=== PATIENT | female | born 1980 | race Caucasian/White ===

== ENCOUNTER 2017-03-15 08:40 | Day surgery (SDC) | payer OTHER ==
[2017-03-15] VITALS (8 sets, daily range): BP systolic 144–182; BP diastolic 81–95
[~2017-03-15] VITALS: Ht 162.6 cm; Wt 123.4 kg
[~2017-03-15 08:40] MED LIST: mirena IUD
[2017-03-15] MEDS ORDERED: fentaNYL 250 MCG/5 ML INJECTION (J3010) As Ordered ONE (08:56)
[2017-03-15] MEDS ORDERED: LIDOCAINE 2% INJ 100 MG/5 ML SDV (FOR ANES.) As Ordered ONE (08:56)
[2017-03-15] MEDS ORDERED: MIDAZOLAM INJ 2 MG/2 ML VIAL (J2250) As Ordered ONE (08:56)
[2017-03-15] MEDS ORDERED: ROCURONIUM BROMIDE 50 MG/5 ML VIAL/SYRINGE As Ordered ONE ×2 (08:56→10:30)
[2017-03-15] MEDS ORDERED: PROPOFOL 200 MG/20 ML VIAL As Ordered ONE (08:56)
[2017-03-15] MEDS ORDERED: LR 1,000 ML IV ONE (09:00)
[2017-03-15 09:07] LABS: MEAN CORPUSCULAR HEMOGLOBIN 29.1 pg (27.0-33.0); RED CELL DISTRIBUTION WIDTH 12.9 % (11.5-14.5)
[2017-03-15] MEDS ORDERED: BUPIVACAINE HCL 0.25% 30 ML VIAL As Ordered ONE (09:57)
[2017-03-15] MEDS ORDERED: METHYLENE BLUE 0.5% (5MG/ML) 10 ML AMP (PROVAYBLUE)(Q9968 PER 1MG) As Ordered ONE (09:57)
[2017-03-15] MEDS ORDERED: ePHEDrine SULFATE 25 MG/5 ML(5MG/ML) SYRINGE As Ordered ONE (09:58)
[2017-03-15] MEDS ORDERED: dexameTHASONE 4 MG/ML 1ML VIAL (J1100) As Ordered ONE (09:59)
[2017-03-15] MEDS ORDERED: GLYCOPYRROLATE INJ 0.2 MG/ML 2 ML VIAL As Ordered ONE (10:14)
[2017-03-15] MEDS ORDERED: NEOSTIGMINE 1MG/ML 5 ML SYRINGE (J2710) As Ordered ONE (10:14)
[2017-03-15] MEDS ORDERED: ONDANSETRON 4MG/2ML VIAL (J2405) As Ordered ONE (10:14)
[2017-03-15] MEDS ORDERED: HYDROmorphone HCL 2 MG/ML 1ML VIAL (J1170) As Ordered ONE (10:14)
[2017-03-15] MEDS ORDERED: KETOROLAC 60 MG/2 ML VIAL (J1885) As Ordered ONE (10:14)
--- NOTE | 2017-03-15 12:42 | RO ---
DATE OF PROCEDURE: 03/15/2017 PREPROCEDURE DIAGNOSES: 1. Abnormal uterine bleeding. 2. Fibroid uterus. POSTPROCEDURE DIAGNOSES: 1. Abnormal uterine bleeding. 2. Fibroid uterus. PROCEDURE: 1. Robotic assisted laparoscopic hysterectomy. 2. Bilateral salpingectomy. 3. Cystoscopy. SURGEON: Dr. Marcia Yeboah. PLANT SUPERVISOR: MIREILLE Argueta ANESTHESIA: General endotracheal anesthesia. INTRAVENOUS FLUIDS: 1400 mL lactated Ringers solution. SPECIMEN: Uterus, cervix, bilateral fallopian tubes. PREOPERATIVE ANTIBIOTICS: 2 grams Ancef. ESTIMATED BLOOD LOSS: 50 mL. URINE OUTPUT: 400 mL. OPERATIVE FINDINGS: The patient had an approximately 3 cm fundal fibroid. Normal appearing bilateral adnexa. Cystoscopic findings: Good urethra reflux bilaterally. No evidence of trauma to the bladder or foreign body. DESCRIPTION OF PROCEDURE: After informed consent was obtained and written consent was reviewed, the patient was brought to the operating room where general endotracheal anesthesia was obtained. She was then placed in the lithotomy position and was prepped and draped in a normal sterile fashion. A time out in the operating room was performed identifying the patient, procedure to be performed, as well as drug allergies. A speculum was then placed in the vagina revealing the cervix. The anterior and posterior aspect of the cervix was stitched with 0 Vicryl. The uterus was then sounded to 10 cm. A [employer] uterine manipulator was then advanced to the cervical os for means to manipulate the uterus. The intrauterine balloon was then insufflated with 10 mL of air. Cervical cap was then placed down into the vagina as well as the vaginal cap. Instruments were removed from the patient's vagina. A Limon catheter was the placed and set to gravity. Gloves were changed and attention was turned to the patient's abdomen where a Veress needle was placed through the umbilicus. A pneumoperitoneum was then obtained with CO2 gas. Supraumbilical area was infused with 0.25% Marcaine and an incision was made in this area. A 12 mm trocar sleeve was advanced through this incision. Laparoscope was then replaced revealing intra-abdominal placement of two lateral ports, left and right of the umbilicus placed. Each of these areas were infused with 0.25% Marcaine and 8 mm trocars and sleeves were advanced through each one of these incisions under direct visualization. A fourth trocar was placed on the left side of the patient's abdomen. This area was infused with 0.25% Marcaine and the incision was made in this area. An 8 mm trocar and sleeve was advanced through this incision under direct visualization. Next, the da Hany was then advanced to the patient's table and was docked. Utilizing the camera arm and two operative arms. Using bipolar cautery, bilateral salpingectomy was then performed. Mesosalpinx was then cauterized and ligated with good hemostasis noted. The fallopian tubes were then transected at the uterus and good hemostasis was noted bilaterally. Both these specimens were then brought out through the port site. Next, the utero-ovarian ligaments were then cauterized and ligated with good hemostasis noted bilaterally. The round ligaments on both sides were then cauterized and ligated with good hemostasis. The broad ligaments were then dissected along the bladder creating a bladder flap. The remainder of the broad ligaments and cardinal ligaments were then cauterized and ligated with good hemostasis noted. The uterine arteries were skeletonized bilaterally and were cauterized and ligated with good hemostasis noted. The anterior and posterior colpotomies were made and the uterus removed vaginally. Surgical sites were inspected and noted to be hemostatic. The vaginal cuff was then closed using a #2-0 V-Loc system in an running fashion. Surgical sites were then inspected and noted to be hemostatic. The abdomen was then irrigated and suctioned. Mariia was applied over the surgical field. Next, a cystoscopy was performed. The Limon catheter was removed and the cystoscope was advanced transurethrally. The cystoscopy was performed revealing normal bilateral mucosa and bilateral jets from the ureters. The bladder was then drained. Attention was turned to the patient's abdomen where all four skin incisions were closed with #4-0 Monocryl and dressed with Dermabond. The patient was then taken out of lithotomy position, and was awakened from general anesthesia and taken to recovery in stable condition. Counts were correct. Luna Sifuentes, my marketing support assistant, played an essential role in this operation. She assisted with identification of vital structures, manipulation of tissue, port placement as well as skin closure. KAREL
[2017-03-15] MEDS ORDERED: PERCOCET 5MG/325MG TAB PO PRN ×2 (13:30)
[2017-03-15] MEDS ORDERED: PROMETHAZINE INJ 25 MG/ML VIAL (J2550) IV PRN (13:45)
[2017-03-15] MEDS ORDERED: MORPHINE 4 MG/ML 1ML SYRINGE IV PRN (13:45)
[2017-03-15] MEDS ORDERED: zolPIDEM TARTRATE 5 MG TAB PO PRN (13:45)
[2017-03-15] MEDS ORDERED: LR 1,000 ML IV SCH (13:45)
[2017-03-15] MEDS: KETOROLAC 30 MG/ML VIAL (J1885) IV SCH ×2 (16:18→22:17)
[2017-03-16] VITALS: BP 138/70
[2017-03-16 04:00] VITALS: BP 140/69
[2017-03-16] MEDS: KETOROLAC 30 MG/ML VIAL (J1885) IV SCH (04:54)
[2017-03-16 07:11] LABS: MEAN CORPUSCULAR HEMOGLOBIN 28.5 pg (27.0-33.0); RED CELL DISTRIBUTION WIDTH 12.6 % (11.5-14.5); WHITE BLOOD COUNT 13.1 K/mm3 (4.0-10.0)
[2017-03-16 08:00] VITALS: BP 135/71
[2017-03-16] MEDS ORDERED: OXYC1TAB23 PO (10:16)
== END 2017-03-16 10:40 | disposition home or self-care (01) ==
LOC: M SDC 08:40 → M PED 12:16 → M SDC 03-16 10:40
PROVIDERS: ATTEND Obstetrics & Gynecology
DX: N93.8 Other specified abnormal uterine and vaginal bleeding (principal); D25.2 Subserosal leiomyoma of uterus
CPT/HCPCS: 36415; 58571; 85027; 86850; 86900; 86901; 88305; 96374; 96376; A6024; J0690; J1100; J1170; J1885; J2250; J2405; J2710; J3010; Q9968

== ENCOUNTER → 2017-05-03 | Outpatient (CLI) | payer OTHER ==
[~2017-05-03] MED LIST changes: +OXYC1TAB23 PO
[2017-05-03 19:14] LABS: FREE T4 0.89 NG/DL (0.76-1.46)
== END ==
LOC: M WUC 15:28
PROVIDERS: ATTEND Internal Medicine Endocrinology, Diabetes & Metabolism
DX: E04.9 Nontoxic goiter, unspecified (principal)

== ENCOUNTER → 2018-05-17 | Outpatient (CLI) | payer OTHER ==
[2018-05-17 18:13] LABS: FREE T4 0.89 NG/DL (0.76-1.46)
== END ==
LOC: M WUC 14:43
DX: E04.9 Nontoxic goiter, unspecified (principal)
CPT/HCPCS: 84443

== ENCOUNTER → 2018-06-09 | Outpatient (REF) | payer OTHER ==
[2018-06-09 13:01] LABS: BASO % 0.4 % (0.0-1.0); EOS # 0.3 10^3/uL (0.0-0.50); EOS % 3.8 % (0.0-3.0); HEMATOCRIT 39.3 % (36.0-47.0); HEMOGLOBIN 12.7 g/dl (12.0-15.5); IMMATURE GRANULOCYTE % 0.3 % (0-3.0); LYMPH # 1.8 10^3/uL (1.5-4.5); LYMPH % 24.6 % (24.0-44.0); MEAN CORPUSCULAR HGB CONC 32.3 g/dl (32.0-36.5); MEAN CORPUSCULAR VOLUME 86.6 fl (80.0-96.0); MONO # 0.6 10^3/uL (0.0-0.8); NEUTROPHILS # 4.5 10^3/uL (1.8-7.7); NEUTROPHILS % 62.9 % (36.0-66.0); PLATELET COUNT, AUTOMATED 289 10^3/uL (150-450); RED BLOOD COUNT 4.54 10^6/uL (4.00-5.40); RED CELL DISTRIBUTION WIDTH 12.7 % (11.5-14.5); WHITE BLOOD COUNT 7.1 10^3/uL (4.0-10.0)
[2018-06-09 13:20] LABS: ALBUMIN 3.4 GM/DL (3.2-5.2); ALBUMIN/GLOBULIN RATIO 1.13 (1.00-1.93); ALKALINE PHOSPHATASE 81 U/L (45-117); ALT/SGPT 20 U/L (12-78); ANION GAP 7 MEQ/L (8-16); AST/SGOT 11 U/L (7-37); BILIRUBIN,TOTAL 0.4 MG/DL (0.2-1.0); BLOOD UREA NITROGEN 14 MG/DL (7-18); CALCIUM LEVEL 8.9 MG/DL (8.5-10.1); CARBON DIOXIDE LEVEL 28 MEQ/L (21-32); CHLORIDE LEVEL 105 MEQ/L (98-107); CHOLESTEROL LEVEL 195 MG/DL (<200); CREATININE FOR GFR 0.58 MG/DL (0.55-1.30); GLOMERULAR FILTRATION RATE > 60.0 (>60); GLUCOSE, FASTING 92 MG/DL (70-100); HDL CHOLESTEROL 52 MG/DL (>40); LDL CHOLESTEROL 122 MG/DL (<100); NON-HDL-C 143 MG/DL; POTASSIUM SERUM 4.8 MEQ/L (3.5-5.1); SODIUM LEVEL 140 MEQ/L (136-145); TOTAL PROTEIN 6.4 GM/DL (6.4-8.2); TRIGLYCERIDES LEVEL 106 MG/DL (<150)
== END ==
LOC: M SFHCADAM 08:12
DX: Z00.00 Encounter for general adult medical examination without abnormal findings (principal)

== ENCOUNTER → 2018-11-25 | Outpatient (REF) | payer OTHER | LOC: M LABDRAW1 10:35 | PROVIDERS: ATTEND Internal Medicine Endocrinology, Diabetes & Metabolism | DX: E07.9 Disorder of thyroid, unspecified (principal) ==

== ENCOUNTER → 2019-04-10 | Outpatient (CLI) | payer OTHER ==
--- NOTE | 2019-04-10 11:03 | REP ---
Hip: Two views. History: Right-sided sciatica. Comparison study: July 09, 2013. Findings: AP and frog-leg views of the right hip demonstrate smooth rounded femoral head and intact hip joint space. Periarticular soft tissues are unremarkable. No erosive changes seen. Impression: Negative radiographs of the right hip. Electronically Signed by Bi Cotter MD 04/10/2019 10:55 A
--- NOTE | 2019-04-10 11:20 | REP ---
LUMBAR SPINE SERIES: Five views. HISTORY: Low back pain with right-sided sciatica. No recent injury. COMPARISON STUDY: July 09, 2013. FINDINGS: Lumbar vertebral body heights are preserved. Alignment is normal. No fracture or collapse is seen. There is diffuse mild discogenic spurring throughout the lumbar spine and visualized lower thoracic levels. This is radiographically unchanged from the 2013 prior study. Disc space narrowing is most pronounced at L3-4. There is no evidence of spondylolysis or spondylolisthesis. Pedicles and posterior elements are intact. Psoas margins are symmetric. Sacrum and SI joints are unremarkable. IMPRESSION: Diffuse mild degenerative disc disease changes. No acute bony abnormality. Electronically Signed by Bi Cotter MD 04/10/2019 11:31 A
== END ==
LOC: M ADAMS 08:46
PROVIDERS: ATTEND Physician Assistant Medical
DX: M51.36 Other intervertebral disc degeneration, lumbar region (principal); M25.551 Pain in right hip

== ENCOUNTER → 2019-06-15 | Outpatient (REF) | payer OTHER ==
[2019-06-15 20:17] LABS: FREE T4 0.93 NG/DL (0.76-1.46); THYROID STIMULATING HORMONE 2.79 uIU/ML (0.358-3.740)
== END ==
LOC: M LAB REF 19:13 → M LABDRWAD 19:13
PROVIDERS: ATTEND Nurse Practitioner Family
DX: E04.9 Nontoxic goiter, unspecified (principal)

== ENCOUNTER → 2022-01-09 | Outpatient (REF) | payer OTHER ==
[2022-01-09 12:52] LABS: BASO # 0.1 10^3/uL (0.0-0.2); BASO % 0.7 % (0.0-1.0); EOS # 0.4 10^3/uL (0.0-0.5); HEMATOCRIT 40.3 % (36.0-47.0); HEMOGLOBIN 12.6 g/dl (12.0-15.5); LYMPH # 1.3 10^3/uL (1.5-5.0); LYMPH % 17.5 % (24.0-44.0); MEAN CORPUSCULAR HEMOGLOBIN 27.6 pg (27.0-33.0); MEAN CORPUSCULAR HGB CONC 31.3 g/dl (32.0-36.5); MEAN CORPUSCULAR VOLUME 88.2 fl (80.0-96.0); MONO # 0.6 10^3/uL (0.0-0.8); MONO % 8.8 % (2.0-8.0); NEUTROPHILS # 4.9 10^3/uL (1.5-8.5); NEUTROPHILS % 67.4 % (36.0-66.0); PLATELET COUNT, AUTOMATED 274 10^3/uL (150-450); RED BLOOD COUNT 4.57 10^6/uL (4.00-5.40); WHITE BLOOD COUNT 7.2 10^3/uL (4.0-10.0)
[2022-01-09 13:06] LABS: HEMOGLOBIN A1c 5.5 %
[2022-01-09 13:30] LABS: ALBUMIN 3.1 GM/DL (3.2-5.2); ALT/SGPT 24 U/L (12-78); BILIRUBIN,TOTAL 0.2 MG/DL (0.2-1.0); BLOOD UREA NITROGEN 17 MG/DL (7-18); CALCIUM LEVEL 8.4 MG/DL (8.5-10.1); CARBON DIOXIDE LEVEL 29 MEQ/L (21-32); CHLORIDE LEVEL 107 MEQ/L (98-107); CHOLESTEROL LEVEL 167 MG/DL (<200); CHOLESTEROL RISK RATIO 3.211 (<5); CREATININE FOR GFR 0.63 MG/DL (0.55-1.30); FREE T4 0.88 NG/DL (0.76-1.46); GLOMERULAR FILTRATION RATE > 60.0 (>58); GLUCOSE, FASTING 78 MG/DL (70-100); HDL CHOLESTEROL 52 MG/DL (>40); LDL CHOLESTEROL 97 MG/DL (<100); NON-HDL-C 115 MG/DL; POTASSIUM SERUM 4.9 MEQ/L (3.5-5.1); SODIUM LEVEL 139 MEQ/L (136-145); TOTAL PROTEIN 6.6 GM/DL (6.4-8.2); TRIGLYCERIDES LEVEL 91 MG/DL (<150)
== END ==
LOC: M SFHCADAM 07:50
PROVIDERS: ATTEND Family Medicine
DX: Z00.00 Encounter for general adult medical examination without abnormal findings (principal); Z13.1 Encounter for screening for diabetes mellitus

== ENCOUNTER → 2022-06-07 | Outpatient (REF) | payer OTHER | LOC: M SFHCDERM 12:57 | PROVIDERS: ATTEND Nurse Practitioner Family | DX: D49.2 Neoplasm of unspecified behavior of bone, soft tissue, and skin (principal) ==

== ENCOUNTER → 2022-08-28 | Outpatient (REF) | payer OTHER ==
[2022-08-28 16:59] LABS: ALBUMIN 3.5 G/DL (3.2-5.2); ALKALINE PHOSPHATASE 85 U/L (46-116); ALT/SGPT 29 U/L (7.0-40); AST/SGOT 22 U/L (<34); BILIRUBIN,TOTAL 0.3 MG/DL (0.3-1.2); BLOOD UREA NITROGEN 13 MG/DL (9-23); CALCIUM LEVEL 9.2 MG/DL (8.5-10.1); CARBON DIOXIDE LEVEL 28 MMOL/L (20-31); CHLORIDE LEVEL 101 MMOL/L (98-107); CREATININE FOR GFR 0.64 MG/DL (0.55-1.30); GLOMERULAR FILTRATION RATE > 60.0 (>58); GLUCOSE, FASTING 84 MG/DL (60-100); POTASSIUM SERUM 4.4 MMOL/L (3.5-5.1); SODIUM LEVEL 137 MMOL/L (136-145); TOTAL PROTEIN 6.9 G/DL (5.7-8.2)
[2022-08-28 17:01] LABS: FREE T4 0.87 NG/DL (0.89-1.76)
== END ==
LOC: M SFHCADAM 15:11
PROVIDERS: ATTEND Family Medicine
DX: E03.8 Other specified hypothyroidism (principal); R03.0 Elevated blood-pressure reading, without diagnosis of hypertension

== ENCOUNTER → 2022-11-19 | Outpatient (REF) | payer OTHER ==
[2022-11-19 17:41] LABS: FREE T4 0.95 NG/DL (0.89-1.76); THYROID STIMULATING HORMONE 3.669 uIU/ML (0.55-4.78)
== END ==
LOC: M SFHCADAM 16:14
PROVIDERS: ATTEND Family Medicine
DX: E03.9 Hypothyroidism, unspecified (principal)

== ENCOUNTER → 2023-02-01 | Outpatient (REF) | payer OTHER | LOC: M WUC 21:06 | PROVIDERS: ATTEND Nurse Practitioner Family | DX: R30.0 Dysuria (principal); M54.50 Low back pain, unspecified ==

== ENCOUNTER → 2023-11-29 | Outpatient (REF) | payer OTHER ==
[2023-11-29 13:58] LABS: FREE T4 0.97 NG/DL (0.89-1.76); THYROID STIMULATING HORMONE 2.698 uIU/ML (0.55-4.78)
[2023-11-29 13:59] LABS: ALBUMIN 3.2 G/DL (3.2-5.2); ALKALINE PHOSPHATASE 80 U/L (46-116); ALT/SGPT 19 U/L (7.0-40); AST/SGOT 13 U/L (<34); BILIRUBIN,TOTAL 0.4 MG/DL (0.3-1.2); BLOOD UREA NITROGEN 18 MG/DL (9-23); CALCIUM LEVEL 8.9 MG/DL (8.5-10.1); CARBON DIOXIDE LEVEL 27 MMOL/L (20-31); CHLORIDE LEVEL 106 MMOL/L (98-107); CREATININE FOR GFR 0.64 MG/DL (0.55-1.30); GLOMERULAR FILTRATION RATE > 60.0 (>58); GLUCOSE, FASTING 87 MG/DL (60-100); POTASSIUM SERUM 4.6 MMOL/L (3.5-5.1); SODIUM LEVEL 139 MMOL/L (136-145); TOTAL PROTEIN 6.6 G/DL (5.7-8.2)
== END ==
LOC: M SFHCADAM 10:29
PROVIDERS: ATTEND Family Medicine
DX: I10 Essential (primary) hypertension (principal); E03.9 Hypothyroidism, unspecified

== ENCOUNTER → 2024-05-13 | Outpatient (REF) | payer OTHER ==
[2024-05-13 15:22] LABS: ALBUMIN 3.4 G/DL (3.2-5.2); ALKALINE PHOSPHATASE 76 U/L (46-116); ALT/SGPT 21 U/L (7.0-40); AST/SGOT 12 U/L (<34); BILIRUBIN,TOTAL 0.4 MG/DL (0.3-1.2); BLOOD UREA NITROGEN 16 MG/DL (9-23); CALCIUM LEVEL 9.2 MG/DL (8.5-10.1); CARBON DIOXIDE LEVEL 30 MMOL/L (20-31); CHLORIDE LEVEL 108 MMOL/L (98-107); CHOLESTEROL LEVEL 198 MG/DL (<200); CHOLESTEROL RISK RATIO 3.46 (<5); CREATININE FOR GFR 0.68 MG/DL (0.55-1.30); GLOMERULAR FILTRATION RATE > 60.0 (>58); GLUCOSE, FASTING 91 MG/DL (60-100); HDL CHOLESTEROL 57.1 MG/DL (>40); LDL CHOLESTEROL 123.3 MG/DL (<100); NON-HDL-C 140.9 MG/DL; POTASSIUM SERUM 4.7 MMOL/L (3.5-5.1); SODIUM LEVEL 140 MMOL/L (136-145); TOTAL PROTEIN 6.5 G/DL (5.7-8.2); TRIGLYCERIDES LEVEL 88 MG/DL (<150)
[2024-05-13 15:23] LABS: BASO % 0.7 % (0.0-1.0); EOS # 0.3 10^3/uL (0.0-0.5); EOS % 4.8 % (0.0-3.0); HEMATOCRIT 38.5 % (36.0-47.0); HEMOGLOBIN 12.2 g/dl (12.0-15.5); LYMPH # 1.3 10^3/uL (1.5-5.0); LYMPH % 21.7 % (24.0-44.0); MEAN CORPUSCULAR HEMOGLOBIN 27.8 pg (27.0-33.0); MEAN CORPUSCULAR HGB CONC 31.7 g/dl (32.0-36.5); MEAN CORPUSCULAR VOLUME 87.7 fl (80.0-96.0); MONO # 0.6 10^3/uL (0.0-0.8); MONO % 9.3 % (2.0-8.0); NEUTROPHILS # 3.8 10^3/uL (1.5-8.5); PLATELET COUNT, AUTOMATED 290 10^3/uL (150-450); RED BLOOD COUNT 4.39 10^6/uL (4.00-5.40)
[2024-05-13 15:24] LABS: THYROID STIMULATING HORMONE 3.974 uIU/ML (0.55-4.78)
== END ==
LOC: M SFHCADAM 08:03
PROVIDERS: ATTEND Family Medicine
DX: Z00.00 Encounter for general adult medical examination without abnormal findings (principal)

== ENCOUNTER 2024-08-05 09:52 | Day surgery (SDC) | payer OTHER ==
[~2024-08-05] VITALS: Ht 162.6 cm; Wt 126.0 kg
[~2024-08-05 09:52] MED LIST changes: +CLOB5CR TOP; +HYDR-3490 PO; +IBUP200C90 PO; +LISI40TA4 PO; +SYNT50TA PO
[2024-08-05] MEDS ORDERED: LIDOCAINE 2% 100MG/5ML SDV (FOR ANES.) As Ordered ONE (10:48)
[2024-08-05] MEDS ORDERED: propofoL 200 MG/20 ML VIAL As Ordered ONE (10:48)
[2024-08-05 11:40] VITALS: BP 175/82; O2SAT 97
== END 2024-08-05 12:00 | disposition home or self-care (01) ==
LOC: M OPP 09:52
PROVIDERS: ATTEND Surgery
DX: Z12.11 Encounter for screening for malignant neoplasm of colon (principal); C20 Malignant neoplasm of rectum; K56.690 Other partial intestinal obstruction; D12.2 Benign neoplasm of ascending colon; Z79.899 Other long term (current) drug therapy

== ENCOUNTER → 2024-08-10 | Outpatient (CLI) | payer OTHER ==
[~2024-08-10] MED LIST changes: +GASTROGRAFIN SOLUTION 30ML As Ordered ONE; +ISOVUE-370 76% 100ML VIAL As Ordered ONE
== END ==
LOC: M RAD 14:09
PROVIDERS: ATTEND Surgery
DX: C20 Malignant neoplasm of rectum (principal)

== ENCOUNTER → 2024-08-11 | Outpatient (REF) | payer OTHER ==
[~2024-08-11] MED LIST changes: -GASTROGRAFIN SOLUTION 30ML As Ordered ONE; -ISOVUE-370 76% 100ML VIAL As Ordered ONE
[2024-08-11 17:21] LABS: BASO # 0.1 10^3/uL (0.0-0.2); BASO % 0.7 % (0.0-1.0); EOS # 0.3 10^3/uL (0.0-0.5); HEMATOCRIT 39.9 % (36.0-47.0); LYMPH # 1.7 10^3/uL (1.5-5.0); LYMPH % 20.1 % (24.0-44.0); MEAN CORPUSCULAR HEMOGLOBIN 28.1 pg (27.0-33.0); MEAN CORPUSCULAR HGB CONC 32.6 g/dl (32.0-36.5); MEAN CORPUSCULAR VOLUME 86.4 fl (80.0-96.0); MONO # 0.6 10^3/uL (0.0-0.8); MONO % 7.5 % (2.0-8.0); NEUTROPHILS # 5.7 10^3/uL (1.5-8.5); NEUTROPHILS % 67.2 % (36.0-66.0); PLATELET COUNT, AUTOMATED 365 10^3/uL (150-450); RED BLOOD COUNT 4.62 10^6/uL (4.00-5.40); WHITE BLOOD COUNT 8.5 10^3/uL (4.0-10.0)
== END ==
LOC: M SFHCADAM 15:01
PROVIDERS: ATTEND Family Medicine
DX: C19 Malignant neoplasm of rectosigmoid junction (principal)

== ENCOUNTER → 2024-08-13 | Outpatient (CLI) | payer OTHER ==
[~2024-08-13] MED LIST changes: +PROHANCE 279.3MG/ML 15ML VIAL As Ordered ONE; +PROHANCE 279.3MG/ML 5ML VIAL As Ordered ONE
== END ==
LOC: M RAD 07:50
PROVIDERS: ATTEND Surgery
DX: C20 Malignant neoplasm of rectum (principal)

== ENCOUNTER → 2024-09-17 | Outpatient (CLI) | payer OTHER ==
[~2024-09-17] MED LIST changes: -PROHANCE 279.3MG/ML 15ML VIAL As Ordered ONE; -PROHANCE 279.3MG/ML 5ML VIAL As Ordered ONE
== END ==
LOC: M ONCR 14:55
PROVIDERS: ATTEND General Practice
DX: C19 Malignant neoplasm of rectosigmoid junction (principal); Z98.51 Tubal ligation status; Z90.710 Acquired absence of both cervix and uterus; Z80.1 Family history of malignant neoplasm of trachea, bronchus and lung; Z80.8 Family history of malignant neoplasm of other organs or systems; Z79.899 Other long term (current) drug therapy

== ENCOUNTER → 2024-10-08 | Outpatient (CLI) | payer OTHER ==
[~2024-10-08] MED LIST changes: +ISOVUE-300 61% 100ML VIAL As Ordered ONE; +SODIUM CHLORIDE 0.9% INJ 10 ML SYR IV SCH; +ceFAZolin SODIUM 2 GM in DEXTROSE 5% (D5W) ADV/MINI-BAG 50 ML IV ONE
[2024-10-08 07:15] VITALS: TEMP 98
[2024-10-08] MEDS: NS (Normal Saline) 0.9% 1,000 ML IV SCH (07:25)
[2024-10-08] MEDS: ceFAZolin SODIUM 3 GM in DEXTROSE 5% (D5W) MINI-BAG PLU 100 ML IV ONE (07:51)
[2024-10-08] MEDS: fentaNYL 100 MCG/2 ML INJECTION IV PRN (08:11)
[2024-10-08] MEDS: MIDAZOLAM INJ 2MG/2ML VIAL IV PRN (08:12)
[2024-10-08] MEDS: LIDOCAINE 1% MDV 20ML VIAL SC ONE (08:28)
[2024-10-08 08:55] VITALS: BP 144/78; O2SAT 100
== END ==
LOC: M IRPRO 06:54
PROVIDERS: ATTEND Internal Medicine Medical Oncology
DX: C18.9 Malignant neoplasm of colon, unspecified (principal)
CPT/HCPCS: 36561; 99152; C1894; J0690; J1642; J2250; J3010

== ENCOUNTER → 2024-10-22 | Outpatient (CLI) | payer OTHER ==
[~2024-10-22] MED LIST changes: -ISOVUE-300 61% 100ML VIAL As Ordered ONE; +LIDO30CR18 TOP; +ONDA-84 PO; +PROC10TA5 PO; -SODIUM CHLORIDE 0.9% INJ 10 ML SYR IV SCH; -ceFAZolin SODIUM 2 GM in DEXTROSE 5% (D5W) ADV/MINI-BAG 50 ML IV ONE
== END ==
LOC: M PLALAB 09:45
PROVIDERS: ATTEND Nurse Practitioner Family
DX: C19 Malignant neoplasm of rectosigmoid junction (principal)

== ENCOUNTER → 2025-04-08 | Outpatient (REF) | payer OTHER ==
[~2025-04-08] MED LIST changes: +AMLO25TA PO; +LISI40TA10 PO; -LISI40TA4 PO; +NORV5TAB PO; +ONDA-284 PO
[2025-04-08 19:10] LABS: ALT/SGPT 27 U/L (7.0-40); AST/SGOT 22 U/L (<34); CALCIUM LEVEL 9.1 MG/DL (8.5-10.1); CARBON DIOXIDE LEVEL 28 MMOL/L (20-31); CHLORIDE LEVEL 106 MMOL/L (98-107); CREATININE FOR GFR 0.68 MG/DL (0.55-1.30); GLOMERULAR FILTRATION RATE > 90.0 (>58); IRON (FE) 16 UG/DL (50-170); PERCENT SATURATION 6.5 % (13.2-45.0); POTASSIUM SERUM 4.5 MMOL/L (3.5-5.1); SODIUM LEVEL 142 MMOL/L (136-145)
[2025-04-08 19:12] LABS: TOTAL 25(OH) VITAMIN D 24.9 NG/ML (20.0-100.0); VITAMIN B12 LEVEL 211 PG/ML (211-911)
[2025-04-08 19:19] LABS: BASO # 0.0 10^3/uL (0.0-0.2); BASO % 0.4 % (0.0-1.0); EOS # 0.5 10^3/uL (0.0-0.5); EOS % 7.4 % (0.0-3.0); LYMPH # 1.2 10^3/uL (1.5-5.0); LYMPH % 16.8 % (24.0-44.0); MONO # 0.5 10^3/uL (0.0-0.8); MONO % 7.0 % (2.0-8.0); NEUTROPHILS # 4.9 10^3/uL (1.5-8.5); NEUTROPHILS % 68.1 % (36.0-66.0); PLATELET COUNT, AUTOMATED 268 10^3/uL (150-450)
== END ==
LOC: M LABDRWAD 16:54
PROVIDERS: ATTEND Internal Medicine Medical Oncology
DX: C21.0 Malignant neoplasm of anus, unspecified (principal)

== ENCOUNTER → 2025-07-23 | Outpatient (CLI) | payer OTHER ==
[~2025-07-23] MED LIST changes: +CEPH500C PO; +DEXA2TA PO
[2025-07-23 09:43] LABS: BASO # 0.0 10^3/uL (0.0-0.2); BASO % 0.9 % (0.0-1.0); EOS # 0.1 10^3/uL (0.0-0.5); EOS % 2.6 % (0.0-3.0); LYMPH # 0.9 10^3/uL (1.5-5.0); LYMPH % 26.3 % (24.0-44.0); MONO # 0.5 10^3/uL (0.0-0.8); MONO % 13.1 % (2.0-8.0); NEUTROPHILS # 2.0 10^3/uL (1.5-8.5); NEUTROPHILS % 56.5 % (36.0-66.0); PLATELET COUNT, AUTOMATED 165 10^3/uL (150-450)
[2025-07-23 10:06] LABS: ALT/SGPT 27 U/L (7.0-40); AST/SGOT 23 U/L (<34); CALCIUM LEVEL 9.5 MG/DL (8.5-10.1); CARBON DIOXIDE LEVEL 28 MMOL/L (20-31); CHLORIDE LEVEL 104 MMOL/L (98-107); CREATININE FOR GFR 0.64 MG/DL (0.55-1.30); GLOMERULAR FILTRATION RATE > 90.0 (>58); IRON (FE) 38 UG/DL (50-170); MAGNESIUM LEVEL 2.1 MG/DL (1.8-2.4); PERCENT SATURATION 12.6 % (13.2-45.0); POTASSIUM SERUM 4.5 MMOL/L (3.5-5.1); SODIUM LEVEL 139 MMOL/L (136-145)
[2025-07-23 10:08] LABS: TESTOSTERONE 14 NG/DL (14-76); VITAMIN B12 LEVEL 362 PG/ML (211-911)
[2025-07-23 10:22] LABS: CA19-9 TUMOR MARKER,CARBOHYDRA 14.4 U/ML (<35.0)
== END ==
LOC: M LAB 08:12
DX: C20 Malignant neoplasm of rectum (principal)